=== PATIENT | male | born 1990 ===

== ENCOUNTER → 2024-07-27 11:10 | Outpatient (CLI) | payer OTHER, SELFPAY ==
--- NOTE | 2024-07-27 11:15 | DI.MRI.S_ITS ---
PROCEDURE: MR HEAD/BRAIN WO CON INDICATIONS: CHRONIC PAROXYSMAL HEMICRANIA TECHNIQUE: Noncontrast axial T1 spin echo, axial T2 fast spin echo, sagittal and axial FLAIR, coronal T2 fast spin echo, axial gradient echo, axial diffusion and ADC through the brain. COMPARISON: None. FINDINGS: Image quality: Excellent. CSF Spaces: Basal cisterns are patent. No extra-axial fluid collections. Ventricles are normal in size and shape. Brain: No intracranial masses or hemorrhage. Mcdonald/white matter interface is normal. Brainstem appears normal. Diffusion-weighted images demonstrate no acute infarct. No chronic ischemic insults. Normal intravascular flow voids are present. Skull and face: Calvarium has normal marrow signal. Orbits appear normal. Sinuses: Mucous retention cysts can be seen within the maxillary sinuses. There is [id number] mucosal thickening within the anterior left ethmoid air cells. No abnormal fluid is seen within the mastoid air cells. IMPRESSION: Unremarkable intracranial study, without a cause of the patient's presenting symptoms. To the limits of this noncontrast study, no findings of intracranial masses or mass effect can be seen. Additional findings: Focal left ethmoid air cell disease Maxillary sinus mucous retention cysts Dictated by: Justus Tai M.D. on 07/27/2024 at 12:26 Approved by: Justus Tai M.D. on 07/27/2024 at 12:27
== END ==
PROVIDERS: PCP Family Medicine; Referring Provider Family Medicine; Visit Provider Family Medicine
DX: G44.049 Chronic paroxysmal hemicrania, not intractable (principal); J32.2 Chronic ethmoidal sinusitis; J34.1 Cyst and mucocele of nose and nasal sinus
CPT/HCPCS: 70551